=== PATIENT | female | born 1995 | race American Indian/Alaskan Native ===

== ENCOUNTER 2019-01-20 11:41 | Emergency (ER) | payer OTHER, BC ==
[2019-01-20 11:51] VITALS: BP 118/52
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
== END 2019-01-20 14:08 | disposition home or self-care (01) ==
LOC: ED 11:41
DX: O9A.212 Injury, poisoning and certain other consequences of external causes complicating pregnancy, second trimester (principal); R10.30 Lower abdominal pain, unspecified; M79.10 Myalgia, unspecified site; Z3A.17 17 weeks gestation of pregnancy; V49.49XA Driver injured in collision with other motor vehicles in traffic accident, initial encounter; Y93.89 Activity, other specified; Y92.410 Unspecified street and highway as the place of occurrence of the external cause; Y99.8 Other external cause status